=== PATIENT | female | born 1990 | race American Indian/Alaskan Native ===

== ENCOUNTER 2017-03-22 00:31 | Emergency (ER) | payer MEDICAID ==
[2017-03-22 01:05] VITALS: BP 126/75
[2017-03-22] MEDS ORDERED: FUL-GLO OP ONE ×2 (02:24)
[2017-03-22] MEDS ORDERED: TETRACAINE 0.5% OU PRN (02:24)
[2017-03-22] MEDS ORDERED: BSS ONE (02:25)
[2017-03-22] MEDS ORDERED: TETRACAINE 0.5% ONE (02:25)
--- NOTE | 2017-03-22 02:58 | Emergency Department Report ---
Eye Injury/Foreign Body - HPI Duration: Today Eye Location: Right Severity: Mild Eye Symptoms: Eye Pain: Yes, Blurred Vision: No, Eye Redness: Yes, Grinding/ Hammering Metal: No, Contact Lens Use: No, Photophobia: No Other History: This is a 26-year-old female that presents with right eye itching , irritation and redness. Associated symptoms include irritation and burning sensation to the right eye. Patient stated wears contact lens and upon removing the contact lens the patient started to feel irritated and redness. Patient denies any floaters, blurred vision, visual changes, chest pain, shortness of breath, nausea vomiting, or headache. Patient is not toxic or ill in appearance. No signs of distress noted. ED Review of Systems ROS: Stated complaint: RT EYE INFECTION Other details as noted in HPI Constitutional: denies: chills, fever Eyes: other (burning/irritation right eye). denies: eye pain, eye discharge, vision change ENT: denies: ear pain, throat pain Respiratory: denies: cough, shortness of breath, wheezing Cardiovascular: denies: chest pain, palpitations Endocrine: no symptoms reported Gastrointestinal: denies: abdominal pain, nausea, diarrhea Genitourinary: denies: urgency, dysuria, discharge Musculoskeletal: denies: back pain, joint swelling, arthralgia Skin: denies: rash, lesions Neurological: denies: headache, weakness, paresthesias Psychiatric: denies: anxiety, depression Hematological/Lymphatic: denies: easy bleeding, easy bruising ED Past Medical Hx - Past Medical History Hx Asthma: Yes - Surgical History Additional Surgical History: - Social History Smoking Status: Never Smoker Substance Use Type: None - Medications Home Medications: Home Medications Medication Instructions Recorded Confirmed Last Taken Type Flonase 2 puff INTRANASAL DAILY 03/22/17 03/22/17 Unknown History Tetracaine 0.5% [Tetravisc Forte 1 - 2 drop OP PRN #1 drop 03/22/17 Unknown Rx 0.5%] Eye Injury Exam - Exam General: Vital signs noted. No distress. Alert and acting appropriately. GENERAL: The patient is a well-developed, well-nourished male in no apparent distress. Patient is alert and oriented x3. VITAL SIGNS: Stable HEENT: Head is normocephalic and atraumatic. Extraocular muscles are intact. Pupils are equal, round, and reactive to light and accommodation. Nares appeared normal. Mouth is well hydrated and without lesions. Mucous membranes are moist. Posterior pharynx clear of any exudate or lesions. Denies floaters. Sclera erythema. No corneal abrasion noted. No pus or drainage noted. No crusting noted. Patient denies changes in vision. NECK: Supple. No carotid bruits. No lymphadenopathy or thyromegaly. LUNGS: Clear to auscultation. HEART: Regular rate and rhythm without murmur. ABDOMEN: Soft, nontender, and nondistended. Positive bowel sounds. No hepatosplenomegaly was noted. EXTREMITIES: Without any cyanosis, clubbing, rash, lesions or edema. NEUROLOGIC: Cranial nerves II through XII are grossly intact. PSYCHIATRIC: Flat affect, but denies suicidal or homicidal ideations. SKIN: No ulceration or induration present. ED Course Vital Signs 03/22/17 00:57 Temperature 97.8 F Pulse Rate 72 Respiratory 18 Rate Blood Pressure 126/75 Blood Pressure 126/75 [Left] O2 Sat by Pulse 98 Oximetry - Reevaluation(s) Reevaluation #1: 03/22/17 02:59 Under wood's lamp, I used 0.5% tetracaine with fluorescein to evaluate for possibility of coronary abrasion. No corneal abrasion seen upon exam. ED Medical Decision Making - Medical Decision Making ED course: 26-year-old female that presents with right eye irritation/erythema 1- under Wood's lamp, no signs of corneal abrasion noted. 2- I instructed the patient to follow-up with ophthalmology if symptoms continues or worsens. I also prescribed patient tetracaine drops for irritation to the affected eye as needed. 3- at the time of discharge the patient does not seem toxic or ill in appearance. No signs of distress noted. Patient agrees to discharge treatment plan. No further questions noted by the patient. Critical care attestation.: If time is entered above; I have spent that time in minutes in the direct care of this critically ill patient, excluding procedure time. ED Disposition Clinical Impression: Eye irritation Disposition: DISCHARGED TO HOME OR SELFCARE Is pt being admited?: No Does the pt Need Aspirin: No Condition: Stable Additional Instructions: Follow-up with your medical bill processor in 3-5 days or if symptoms worsen Take tetracaine as prescribed as needed to the affected eye. Prescriptions: Tetracaine 0.5% [Tetravisc Forte 0.5%] 1 - 2 drop OP PRN #1 drop Referrals: TAMRA LEBLANC MD [Referring] - 3-5 Days [facility] [Outside] - 3-5 Days [facility] [place]Note 3[facility] [Outside] - 3-5 Days Forms: Work/School Release Form(ED)
== END 2017-03-22 03:10 | disposition home or self-care (01) ==
LOC: ED 00:31
DX: H57.8 Other specified disorders of eye and adnexa (principal); J45.909 Unspecified asthma, uncomplicated
CPT/HCPCS: 99283